=== PATIENT | male | born 2000 | race Caucasian/White ===

== ENCOUNTER 2019-09-27 08:10 | Emergency (ER) | payer SELFPAY ==
[2019-09-27] MEDS ORDERED: Ondansetron 4 MG/2 ML SDV IM ONE (08:24)
[2019-09-27] MEDS: Ondansetron 4 MG/2 ML SDV IVPUSH ONE (08:35)
[2019-09-27] MEDS: Sodium Chloride 0.9% 1,000 ML IV ONE (08:35)
[2019-09-27 09:02] LABS: CHLORIDE,CL 103 mmol/L (98-107); SODIUM,NA 142 mmol/L (136-145)
[2019-09-27 09:03] LABS: ANION GAP 16.9 mmol/L (10-20)
--- NOTE | 2019-09-27 09:04 | CR ---
[id number] RAD/RAD Abd Flat and Upright 2V EXAM: RAD Abd Flat and Upright 2V INDICATION: VOMITING. COMPARISON: None. DISCUSSION: Oral contrast agent or other ingested hyperdense material scattered throughout nondilated small bowel loops and in the cecum. No bowel dilation, free air or pneumatosis is identified. No pathologic calcifications are seen, but the hyperdense material could obscure pathology. The osseous structures are unremarkable. IMPRESSION: 1. Negative exam. Chavo Toro MD 09/27/19 0903 Thank you for allowing us to participate in the care of your patient.
--- NOTE | 2019-09-27 09:18 | EDM.PDOC ---
ED HPI GENERAL MEDICAL PROBLEM - General Chief Complaint: Gastrointestinal Problem Stated Complaint: Nausea and vomiting Time Seen by Provider: 09/27/19 08:35 Source of Information: Reports: Patient History Limitations: Reports: No Limitations - History of Present Illness INITIAL COMMENTS - FREE TEXT/NARRATIVE: Patient states since last Friday he has had chronic ongoing nausea on a daily basis with intermittent episodes of vomiting says 1 day he might vomit once a day the other might be 2 or 3 times a day at sporadic intervals. He said it seems to start after last Friday night eating some chicken that seemed to be undercooked the next day is when it started he had nausea vomiting little bit of diarrhea which decreased over 72 hours except for the nausea. He states he has been drinking about half a gallon of water a day along with other things such as Gatorade and milk keeping most of it down but sometimes he brings it up it may be 5 minutes later or 3 or 4 hours later. He said he has had decreased bowel movement since but going at least every day sometimes small amount sometimes normal amount. He said he had a little bit of intermittent abdominal cramping and the patient points to the left lower quadrant area and says it may last 2 to 3 minutes then may last 20 minutes pain is about a 4 out of 10 when it hits and then goes away on its own He says he has drank a 12 ounce bottle of Pepto over the last 3 to 4 days with no relief. He has no other complaints no other medical issues at this time He denies any sick contacts or any other sick personnel in the house he is not eating anything out of the ordinary Duration: Week(s): Severity: Mild Improves with: Reports: None Worsens with: Reports: None Associated Symptoms: Reports: Nausea/Vomiting. Denies: Chest Pain, Cough, cough w sputum, Diaphoresis, Fever/Chills, Headaches, Loss of Appetite, Malaise , Rash, Seizure, Shortness of Breath, Syncope, Weakness ED ROS GENERAL - Review of Systems Review Of Systems: See Below Constitutional: Reports: No Symptoms HEENT: Reports: No Symptoms Respiratory: Reports: No Symptoms Cardiovascular: Reports: No Symptoms Endocrine: Reports: No Symptoms GI/Abdominal: Reports: Abdominal Pain, Diarrhea, Nausea, Vomiting. Denies: Anorexia, Black Stool, Bloody Stool, Constipation, Decreased Appetite, Difficulty Swallowing, Distension, Flatus, Hematemesis, Hematochezia, Melena, Mucous in Stool, Stool Incontinence : Reports: No Symptoms Musculoskeletal: Reports: No Symptoms Skin: Reports: No Symptoms Neurological: Reports: No Symptoms Psychiatric: Reports: No Symptoms Hematologic/Lymphatic: Reports: No Symptoms Immunologic: Reports: No Symptoms ED EXAM, GI/ABD - Physical Exam Exam: See Below Exam Limited By: No Limitations General Appearance: Alert, WD/WN, No Apparent Distress, Other (Patient actively talking on the phone and upon entering the room for exam) Ears: Normal External Exam, Normal Canal, Hearing Grossly Normal, Normal TMs Nose: Normal Inspection, Normal Mucosa, No Blood Throat/Mouth: Normal Inspection, Normal Lips, Normal Teeth, Normal Gums, Normal Oropharynx, Normal Voice, No Airway Compromise, Other (Patient is noted to have a blackish discoloration to the tongue secondary to Pepto-Bismol which scrapes off there is no sign of any ulcerations) Head: Atraumatic, Normocephalic Neck: Normal Inspection, Supple, Non-Tender, Full Range of Motion Respiratory/Chest: No Respiratory Distress, Lungs Clear, Normal Breath Sounds, No Accessory Muscle Use, Chest Non-Tender Cardiovascular: Normal Peripheral Pulses, Regular Rate, Rhythm, No Edema, No Gallop, No JVD GI/Abdominal Exam: Normal Bowel Sounds, Soft, Non-Tender, No Organomegaly, No Distention, Pelvis Stable, Other (Patient has a benign abdominal exam there is no Shawn's tenderness negative rebound negative heel slap negative pelvic rock negative peritoneal signs positive bowel sounds all quadrants). No: Guarding, Rigid, Rebound, Tender Extremities: Normal Inspection, Normal Range of Motion, Non-Tender Neurological: Alert, Oriented, CN II-XII Intact, Normal Cognition, Normal Gait, No Motor/Sensory Deficits Psychiatric: Normal Affect, Normal Mood Skin Exam: Warm, Dry, Intact, Normal Color, No Rash Course - Vital Signs Text/Narrative:: BMP which was normal flatplate and upright shows stool throughout the descending colon Patient was given 1 L normal saline 4 mg Zofran IV Patient was advised to gargle with warm salt water multiple times a day for the next 3 to 4 days to subside the blackish discoloration from the Pepto-Bismol on his tongue Patient was advised to take stool softeners and drink plenty of fluid he was given a prescription for Zofran 4 mg p.o. for home Patient was also advised to discontinue the use of marijuana Flat plate abdominal x-ray negative for acute findings Home treatment for mag citrate Colace increase fluids to clear the colon - Orders/Labs/Meds Labs: Laboratory Tests 09/27/19 Range/Units 08:30 Sodium 142 (136-145) mmol/L Potassium 3.9 (3.5-5.1) mmol/L Chloride 103 (98-107) mmol/L Carbon Dioxide 26 (21-32) mmol/L Anion Gap 16.9 (10-20) mmol/L BUN 11 (7-18) mg/dL Creatinine 1.2 (0.70-1.30) mg/dL Est Cr Clr Drug Dosing TNP Estimated GFR (MDRD) > 60 Glucose 104 (74-106) mg/dL Calcium 8.9 (8.5-10.1) mg/dL Meds: Medications Discontinued Medications Generic Name Dose Route Start Last Admin Trade Name Freq PRN Reason Stop Dose Admin Sodium Chloride 1,000 mls @ 999 mls/hr 09/27/19 08:24 Normal Saline IV 09/27/19 09:24 ONETIME ONE Ondansetron HCl 4 mg 09/27/19 08:24 Zofran IM 09/27/19 08:25 ONETIME ONE Departure - Departure Time of Disposition: 10:00 Disposition: Home, Self-Care 01 Condition: Good Clinical Impression: Nausea & vomiting - Discharge Information Referrals: PCP,None [Primary Care Provider] - Forms: ED Department Discharge Sepsis Event Note - Focused Exam Date Exam was Performed: 09/27/19 Time Exam was Performed: 09:32 - Problem List & Annotations (1) Nausea & vomiting SNOMED Code(s): 70948651 Code(s): R11.2 - NAUSEA WITH VOMITING, UNSPECIFIED Status: Acute Current Visit: Yes
[2019-09-27 12:38] VITALS: BP 141/83; PULSE 89
== END 2019-09-27 09:50 | disposition home or self-care (01) ==
LOC: VM.ED 08:10
DX: R11.2 Nausea with vomiting, unspecified (principal)
CPT/HCPCS: 74019; 80048; 96361; 96374; 99283-GF; 99284-25; J2405; J7030

== ENCOUNTER 2020-02-26 09:02 | Emergency (ER) | payer BC ==
[2020-02-26] MEDS ORDERED: Ondansetron 4 MG/2 ML SDV IVPUSH ONE (09:28)
[2020-02-26] MEDS ORDERED: Sodium Chloride 0.9% 500 ML IV ONE (09:28)
[2020-02-26] MEDS ORDERED: GI Cocktail Oral Solution 30 ML PO ONE (09:49)
--- NOTE | 2020-02-26 09:50 | EDM.PDOC ---
ED HPI GENERAL MEDICAL PROBLEM - General Chief Complaint: Abdominal Pain Stated Complaint: STOMACH ISSUES Time Seen by Provider: 02/26/20 09:20 Source of Information: Reports: Patient History Limitations: Reports: No Limitations - History of Present Illness INITIAL COMMENTS - FREE TEXT/NARRATIVE: Patient presents to ER with complaints of left upper quadrant pain, nausea and vomiting. Has been sick since Friday. Had pain one other time like this and had presented to the ER, felt it was related to constipation. Was worried was same type of concern so was seen in clinic yesterday. Had labs done, states WBC was at 16, told "could be infection". Was put on a PPI and Zofran. Does not feel they are helping. States has been trying to drink fluids but continues to vomit. Last night noted blood with vomiting. Last vomiting at 0100. STates awoke this am and came here as he still has the discomfort. Onset: Gradual Duration: Day(s):, Constant Location: Reports: Abdomen Quality: Reports: Ache, Sharp Severity: Severe Improves with: Reports: None Associated Symptoms: Reports: Nausea/Vomiting. Denies: Confusion, Chest Pain, Cough, Fever/Chills, Loss of Appetite, Shortness of Breath - Related Data Allergies Allergy/AdvReac Type Severity Reaction Status Date / Time No Known Allergies Allergy Verified 09/27/19 10:56 Home Meds: Home Meds . [No Known Home Meds] 09/27/19 [History] Past Medical History - Past Health History Medical/Surgical History: Denies Medical/Surgical History Social & Family History - Tobacco Use Smoking Status *Q: Unknown Ever Smoked ED ROS GENERAL - Review of Systems Review Of Systems: See Below Constitutional: Denies: Fever, Chills, Malaise, Weakness, Fatigue HEENT: Denies: Ear Pain, Rhinitis, Throat Pain, Vertigo Respiratory: Denies: Shortness of Breath, Cough Cardiovascular: Denies: Chest Pain, Edema, Lightheadedness Endocrine: Denies: Fatigue GI/Abdominal: Reports: Abdominal Pain, Nausea, Vomiting. Denies: Constipation, Diarrhea : Reports: No Symptoms Musculoskeletal: Reports: No Symptoms Skin: Reports: No Symptoms Neurological: Reports: No Symptoms ED EXAM, GI/ABD - Physical Exam Exam: See Below Exam Limited By: No Limitations General Appearance: Alert, WD/WN, Mild Distress Ears: Normal External Exam, Normal TMs Nose: Normal Inspection, Normal Mucosa, No Blood Throat/Mouth: Normal Inspection, Normal Oropharynx Head: Normocephalic Neck: Normal Inspection, Supple, Non-Tender Respiratory/Chest: No Respiratory Distress, Lungs Clear, Normal Breath Sounds Cardiovascular: Regular Rate, Rhythm GI/Abdominal Exam: Normal Bowel Sounds, Soft, Tender (LUQ) Extremities: Normal Inspection, No Pedal Edema Neurological: Alert, Oriented Skin Exam: Warm, Dry Course - Orders/Labs/Meds Orders: Active Orders 24 hr Category Date Time Status Sucralfate [Carafate] Med 02/26/20 17:00 Active 1 gm PO QIDACANDBED fentaNYL [Sublimaze] Med 02/26/20 10:50 Active 25 mcg IVPUSH Q2H PRN Medication Orders Fentanyl (Sublimaze) 25 mcg IVPUSH Q2H PRN PRN Reason: Pain Last Admin: 02/26/20 11:42 Dose: 25 mcg Documented by: [email or web address] Sucralfate (Carafate) 1 gm PO QIDACANDBED [facility] Labs: Laboratory Tests 02/26/20 02/26/20 02/26/20 Range/Units 09:35 09:35 13:20 WBC 11.3 H (4.0-10.0) x10^3/uL RBC 4.91 (4.5-6.0) x10^6/uL Hgb 14.4 (14.0-18.0) g/dL Hct 42.3 (40.0-52.0) % MCV 86.2 (78.0-93.0) fL MCH 29.3 (26.0-32.0) pg MCHC 34.0 (32.0-36.0) g/dL RDW Coeff of Sarah Beth 12.4 (10.0-15.0) % Plt Count 221 (130-400) x10^3/uL Neut % (Auto) 74.9 (50.0-80.0) % Lymph % (Auto) 15.0 L (25.0-50.0) % [place] % (Auto) 9.6 (2.0-11.0) % Eos % (Auto) 0.3 (0.0-4.0) % Baso % (Auto) 0.2 (0.2-1.2) % Sodium 137 (136-145) mmol/L Potassium 3.9 (3.5-5.1) mmol/L Chloride 98 (98-107) mmol/L Carbon Dioxide 28 (21-32) mmol/L Anion Gap 14.9 (10-20) mmol/L BUN 22 H (7-18) mg/dL Creatinine 1.7 H (0.70-1.30) mg/dL Est Cr Clr Drug Dosing TNP Estimated GFR (MDRD) 52 Glucose 98 (74-106) mg/dL Calcium 9.4 (8.5-10.1) mg/dL Corrected Calcium 8.84 (8.5-10.1) mg/dL Total Bilirubin 0.8 (0.2-1.0) mg/dL AST 17 (15-37) U/L ALT 24 (16-63) U/L Alkaline Phosphatase 59 (46-116) U/L C-Reactive Protein 3.3 H (<=0.9) mg/dL Total Protein 8.7 H (6.4-8.2) g/dL Albumin 4.7 (3.4-5.0) g/dL Globulin 4.0 Albumin/Globulin Ratio 1.18 Urine Color Yellow (YELLOW) Urine Appearance Slightly cloudy H (CLEAR) Urine pH 6.0 (5.0-8.0) Ur Specific [place] 1.015 Urine Protein Trace H (NEGATIVE) mg/dL Urine Glucose (UA) Negative (NEGATIVE) mg/dL Urine Ketones 40 H (NEGATIVE) mg/dL Urine Occult Blood Moderate H (NEGATIVE) Urine Nitrite Negative (NEGATIVE) Urine Bilirubin Negative (NEGATIVE) Urine Urobilinogen 0.2 (0.2) EU/dL Ur Leukocyte Esterase Negative (NEGATIVE) Urine RBC 20-30 H (NOT SEEN) /HPF Urine WBC 0-5 (NOT SEEN) /HPF Ur Squamous Epith Cells Not seen (NEGATIVE) /HPF Urine Bacteria Rare (NEGATIVE) /HPF Urine Mucus Occasional H (NEGATIVE) /LPF Meds: Medications Generic Name Dose Route Start Last Admin Trade Name Freq PRN Reason Stop Dose Admin Fentanyl 25 mcg 02/26/20 10:50 02/26/20 11:42 Sublimaze IVPUSH 25 mcg Q2H PRN Administration Pain Sucralfate 1 gm 02/26/20 17:00 Carafate PO QIDACANDBED BALAJI Discontinued Medications Generic Name Dose Route Start Last Admin Trade Name Freq PRN Reason Stop Dose Admin Al Hydroxide/Mg Hydroxide 30 ml 02/26/20 09:49 02/26/20 09:56 Gi Cocktail PO 02/26/20 09:50 30 ml ONETIME ONE Administration Ciprofloxacin 1 packet 02/26/20 14:07 02/26/20 14:34 Take Home: Ciprofloxacin 500 Mg, 2 Tab Pack PO 02/26/20 14:08 1 packet ONETIME ONE Administration Sodium Chloride 500 mls @ 500 mls/hr 02/26/20 09:28 02/26/20 12:48 Normal Saline IV 02/26/20 10:27 Not Given ONETIME ONE Promethazine HCl 12.5 mg/ 100.5 mls @ 400 mls/hr 02/26/20 10:24 02/26/20 10:40 Sodium Chloride IV 02/26/20 10:39 400 mls/hr ONETIME ONE Administration Sodium Chloride 1,000 mls @ 999 mls/hr 02/26/20 10:41 02/26/20 09:55 Normal Saline IV 02/26/20 11:41 999 mls/hr ONETIME ONE Administration Levofloxacin/Dextrose 250 mg/ 50 mls @ 50 mls/hr 02/26/20 12:19 02/26/20 12:35 Premix IV 02/26/20 13:18 50 mls/hr ONETIME ONE Administration Sodium Chloride 1,000 mls @ 999 mls/hr 02/26/20 12:28 02/26/20 12:35 Normal Saline IV 02/26/20 13:28 999 mls/hr ONETIME ONE Administration Iopamidol 100 ml 02/26/20 11:16 02/26/20 11:30 Isovue-300 (61%) IVPUSH 02/26/20 11:17 100 ml ONETIME ONE Administration Morphine Sulfate 2 mg 02/26/20 10:07 02/26/20 12:47 Morphine IVPUSH 02/26/20 10:08 Not Given ONETIME ONE Ondansetron HCl 4 mg 02/26/20 09:28 02/26/20 09:56 Zofran IVPUSH 02/26/20 09:29 4 mg ONETIME ONE Administration Pantoprazole Sodium 40 mg 02/26/20 11:30 02/26/20 11:49 Protonix Iv IVPUSH 02/26/20 11:31 40 mg ONETIME ONE Administration Promethazine HCl 1 packet 02/26/20 14:09 02/26/20 14:34 Take Home: Promethazine 25 Mg, 4 Tab Pack PO 02/26/20 14:10 1 packet ONETIME ONE Administration Sucralfate Confirm 02/26/20 14:36 Carafate Administered 02/26/20 14:37 Dose 8 gm .ROUTE .STK-MED ONE - Re-Assessments/Exams Free Text/Narrative Re-Assessment/Exam: 02/26/20 1120- Patient had continued to have frequent retching, one emesis bossman pite giving Zofran. Did now give Phenergan, feels better relief with that. Complains of ongoing pain. Tried GI cocktail but patient vomited much of this up. Labs show mildly elevated WBC at 11.3, CRP 3.3. Due to ongoing pain, will proceed with CT scan of abdomen and Fentanyl. 02/26/20 12:02 Patient resting well. Admits to relief of nausea and pain at this time. Waiting on CT results. 02/26/20 1300- Has been sleeping. Waiting on UA. Advised need to obtain due to CT showing concerns with pyelonephritis. Has no urge to go. Given Levaquin 250 IV. No recurring pain or vomiting. 1400-UA is negative. Given water, states uncomfortable in abdomen after drinking but did "gulp it down as so thirsty" 1430- Will cover patient with Cipro in event of infection in kidney related to CT scan report and elevated WBC. Start Carafate and continue PPI for gastritis. Prometh for nausea. Instructions discussed with patient. Departure - Departure Time of Disposition: 14:14 Disposition: Home, Self-Care 01 Clinical Impression: Nausea & vomiting, Gastritis, Pyelonephritis - Discharge Information *PRESCRIPTION DRUG MONITORING PROGRAM REVIEWED*: No *COPY OF PRESCRIPTION DRUG MONITORING REPORT IN PATIENT VITALIY: No Instructions: Pyelonephritis, Adult, Nausea and Vomiting, Adult Referrals: PCP,None [Primary Care Provider] - Forms: ED Department Discharge Additional Instructions: 1. Push fluids~ take small, frequent sips 2. Tylenol for fever or discomfort 3. Promethazine or Zofran as needed for nausea 4. Carafate 1 gm four times a day, before meals and bedtime for 2 weeks 5. Continue PPI provided by Bunny Causey 6. Follow up in clinic if persisting concerns as EGD may be needed 7. Cipro 500 mg twice a day for 3 days 8. Call with questions or concerns. - My Orders Last 24 Hours: My Active Orders 02/26/20 10:50 fentaNYL [Sublimaze] 25 mcg IVPUSH Q2H PRN 02/26/20 17:00 Sucralfate [Carafate] 1 gm PO QIDACANDBED - Assessment/Plan Last 24 Hours: My Active Orders 02/26/20 10:50 fentaNYL [Sublimaze] 25 mcg IVPUSH Q2H PRN 02/26/20 17:00 Sucralfate [Carafate] 1 gm PO QIDACANDBED
[2020-02-26] MEDS ORDERED: Morphine 2 MG/ML SYRINGE IVPUSH ONE (10:07)
[2020-02-26 10:09] LABS: ANION GAP 14.9 mmol/L (10-20); CHLORIDE,CL 98 mmol/L (98-107); SODIUM,NA 137 mmol/L (136-145)
[2020-02-26] MEDS ORDERED: Promethazine 12.5 MG in Sodium Chloride 0.9% 100 ML IV ONE (10:24)
[2020-02-26] MEDS ORDERED: Sodium Chloride 0.9% 1,000 ML IV ONE ×2 (10:41→12:28)
[2020-02-26] MEDS ORDERED: fentaNYL 100 MCG/2 ML SDV IVPUSH PRN (10:50)
[2020-02-26] MEDS ORDERED: Iopamidol 612 MG/ML 100 ML Bottle IVPUSH ONE (11:16)
[2020-02-26] MEDS ORDERED: Pantoprazole 40 MG Vial IVPUSH ONE (11:30)
--- NOTE | 2020-02-26 11:58 | CT ---
[id number] CT/CT Abdomen Pelvis W IV EXAM: ABDOMEN AND PELVIS CT WITH CONTRAST INDICATION: Abdominal pain and hematemesis. COMPARISON: Radiographs September 27, 2019. DISCUSSION: There is heterogeneous enhancement of both kidneys with multiple wedge-shaped areas of hypodensity throughout both kidneys most suggestive of pyelonephritis. No hydronephrosis, ureteral calculus, abscess or other evident complication is seen currently. There is mild distention of the urinary bladder. Correlation with urinalysis is suggested. Hypodensity within the liver along the right aspect of the falciform ligament is nonspecific, but likely represents focal fatty infiltration. The gallbladder, spleen, pancreas, adrenal glands, small bowel, large bowel and the appendix are normal in appearance. No adenopathy, free air free fluid. The osseous structures are unremarkable. IMPRESSION: 1. Bilateral pyelonephritis without evident complication. There is mild distention of the urinary bladder. Chavo Toro MD 02/26/20 9215 Thank you for allowing us to participate in the care of your patient.
[2020-02-26] MEDS ORDERED: Levofloxacin/Dextrose 5%-Water 250 MG in Premix Bag 1 BAG IV ONE (12:19)
[2020-02-26] MEDS ORDERED: Take Home: Ciprofloxacin 500 MG Tab, 2 Tab Pack PO ONE (14:07)
[2020-02-26] MEDS ORDERED: Take Home: Promethazine 25 MG, 4 Tab Pack PO ONE (14:09)
[2020-02-26] MEDS ORDERED: Sucralfate 1 GM Tab ONE (14:36)
[2020-02-26] MEDS ORDERED: Sucralfate 1 GM Tab PO SCH (17:00)
== END 2020-02-26 14:35 | disposition home or self-care (01) ==
LOC: VM.ED 09:02
DX: N12 Tubulo-interstitial nephritis, not specified as acute or chronic (principal); K29.70 Gastritis, unspecified, without bleeding
CPT/HCPCS: 74177; 80053; 81001; 85025; 86140; 96361; 96365; 96375; 99284-25; A9270-GY; C9113; J1956; J2405; J2550; J3010; J7030; J7050; Q9967

== ENCOUNTER 2020-03-26 18:38 | Emergency (ER) | payer OTHER, BC ==
[2020-03-26] MEDS ORDERED: Acetaminophen/Codeine 300-30 MG Tab PO ONE (19:23)
[2020-03-26] MEDS ORDERED: Lidocaine 1% 30 ML SDV INJECT ONE (20:07)
[2020-03-26] MEDS ORDERED: Flumazenil 0.1 MG/ML 5 ML MDV IVPUSH PRN (20:08)
[2020-03-26] MEDS ORDERED: LORazepam 2 MG/ML SDV IVPUSH ONE (20:08)
[2020-03-26] MEDS ORDERED: HYDROmorphone 1 MG/ML Syringe IVPUSH ONE (20:08)
[2020-03-26] MEDS ORDERED: HYDROmorphone 0.5 MG/0.5 ML Syringe IV ONE (20:09)
[2020-03-26] MEDS ORDERED: Sodium Chloride 0.9% 10 ML Syringe FLUSH PRN (20:09)
[2020-03-26] MEDS ORDERED: Take Home: Acetaminophen/HYDROcodone 325-10 MG, 5 Tab Pack PO ONE ×2 (20:46→20:47)
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
== END 2020-03-26 20:52 | disposition home or self-care (01) ==
LOC: VM.ED 18:38
DX: S62.327A Displaced fracture of shaft of fifth metacarpal bone, left hand, initial encounter for closed fracture (principal); W22.8XXA Striking against or struck by other objects, initial encounter
CPT/HCPCS: 26605; 73130; 96374; 96375; 99283; A9270; J1170; J2001; J2060; 26725

== ENCOUNTER 2020-03-27 19:22 | Emergency (ER) | payer BC ==
--- NOTE | 2020-03-27 19:32 | EDM.PDOC ---
ED HPI GENERAL MEDICAL PROBLEM - General Stated Complaint: GLASS IN HAND Time Seen by Provider: 03/27/20 19:32 Source of Information: Reports: Patient, RN, RN Notes Reviewed History Limitations: Reports: No Limitations - History of Present Illness INITIAL COMMENTS - FREE TEXT/NARRATIVE: Patient presents to ER with complaint of abrasions to the palm of the right hand. Patient states he was trying to close a window, when the window pane broke and his hand went through it. Patient states he feels there still shards of glass in the hand. Patient states to nursing staff that his tetanus vaccination is up-to-date. Onset: Today, Sudden Right Hand Pain Score (Numeric/FACES): 3 - Related Data Allergies Allergy/AdvReac Type Severity Reaction Status Date / Time No Known Allergies Allergy Verified 03/27/20 19:36 Home Meds: Home Meds . [No Known Home Meds] 09/27/19 [History] Past Medical History - Past Health History Medical/Surgical History: Denies Medical/Surgical History ED ROS GENERAL - Review of Systems Review Of Systems: Comprehensive ROS is negative, except as noted in HPI. ED EXAM, SKIN/RASH Exam: See Below Exam Limited By: No Limitations General Appearance: Alert, WD/WN, No Apparent Distress Eye Exam: Bilateral Eye: EOMI, Normal Inspection Ears: Normal External Exam, Hearing Grossly Normal Nose: Normal Inspection Throat/Mouth: Normal Inspection, Normal Voice, No Airway Compromise Head: Atraumatic, Normocephalic Neck: Normal Inspection, Supple, Non-Tender, Full Range of Motion Respiratory/Chest: No Respiratory Distress, Lungs Clear, Normal Breath Sounds, No Accessory Muscle Use, Chest Non-Tender Cardiovascular: Normal Peripheral Pulses, Regular Rate, Rhythm, No Edema, No Gallop, No JVD, No Murmur, No Rub Peripheral Pulses: 2+: Radial (L), Radial (R) GI/Abdominal: Normal Bowel Sounds, Soft, Non-Tender (Male) Exam: Deferred Rectal (Males) Exam: Deferred Back Exam: Normal Inspection, Full Range of Motion, NT Extremities: No Pedal Edema, Normal Capillary Refill, Other (Left hand/wrist in splint, boxer fracture that occurred last night) Neurological: Alert, Oriented, CN II-XII Intact, Normal Cognition, Normal Gait, Normal Reflexes, No Motor/Sensory Deficits Psychiatric: Normal Affect, Normal Mood Skin: Warm, Dry, Normal Color, No Rash, Other (Small abrasions to the right palm of the hand. One small chard of glass removed with forceps from the hand) Location, Skin: Upper Extremity, Right Lymphatic: No Adenopathy ED SKIN PROCEDURES - Foreign Body Removal Indication:: Small chards of glass in the palm of right hand after putting hand through a window while trying to close it. Consent Obtained:: Patient Performing Doctor:: Farida Salgado Foreign Body Other Location Comment:: Palm of right hand Anesthesia Type: Local (Pain Ease spray) Complications:: No Course - Vital Signs Last Recorded V/S: Last Vital Signs Temp 98.7 F 03/27/20 19:25 Pulse 110 H 03/27/20 19:25 Resp 16 03/27/20 19:25 BP 139/90 03/27/20 19:25 Pulse Ox 97 03/27/20 19:25 Departure - Departure Time of Disposition: 19:48 Disposition: Home, Self-Care 01 Condition: Good Clinical Impression: Abrasion Foreign body in hand Qualifiers: Encounter type: initial encounter Laterality: right Qualified Code(s): S60.551A - Superficial foreign body of right hand, initial encounter - Discharge Information *PRESCRIPTION DRUG MONITORING PROGRAM REVIEWED*: No *COPY OF PRESCRIPTION DRUG MONITORING REPORT IN PATIENT VITALIY: No Instructions: Hand or Foot Foreign Body, Adult Forms: ED Department Discharge Additional Instructions: Keep area clean and dry Follow up with your primary care facility if no improvement May use Tylenol and/or Ibuprofen as directed for pain Sepsis Event Note (ED) - Focused Exam Vital Signs: Vital Signs Temp Pulse Resp BP Pulse Ox 03/27/20 19:25 98.7 F 110 H 16 139/90 97
== END 2020-03-27 19:50 | disposition home or self-care (01) ==
LOC: VM.ED 19:22
DX: S60.551A Superficial foreign body of right hand, initial encounter (principal); W25.XXXA Contact with sharp glass, initial encounter
CPT/HCPCS: 10120; 99283; 99283-25

== ENCOUNTER 2022-10-19 12:57 | Emergency (ER) | payer BC ==
[2022-10-19] MEDS ORDERED: Lidocaine 1% 10 ML MDV INJECT ONE (13:11)
[2022-10-19] MEDS ORDERED: Acetaminophen/HYDROcodone 325-5 MG Tab PO ONE (13:50)
[2022-10-19] MEDS ORDERED: Take Home: Acetaminophen/HYDROcodone 325-5 MG, 5 Tab Pack PO ONE (14:29)
== END 2022-10-19 14:43 | disposition home or self-care (01) ==
LOC: VM.ED 12:57
DX: S01.81XA Laceration without foreign body of other part of head, initial encounter (principal); W01.198A Fall on same level from slipping, tripping and stumbling with subsequent striking against other object, initial encounter
CPT/HCPCS: 12011; 70450; 70486; 99283; A9270-GY; J3490

== ENCOUNTER 2022-12-22 20:44 | Emergency (ER) | payer OTHER, BC | END 2022-12-22 21:18 | disposition home or self-care (01) | LOC: VM.ED 20:44 | DX: S91.111A Laceration without foreign body of right great toe without damage to nail, initial encounter (principal); W01.0XXA Fall on same level from slipping, tripping and stumbling without subsequent striking against object, initial encounter | CPT/HCPCS: 12002; 99282 ==